=== PATIENT | male | born 1980 | race Caucasian/White ===

== ENCOUNTER 2019-09-03 17:02 | Emergency (ER) | payer OTHER ==
[~2019-09-03] VITALS: Ht 172.7 cm; Wt 83.9 kg
[2019-09-03] MEDS ORDERED: DORYX MPC120 MG PO (17:14)
[2019-09-03] MEDS ORDERED: PROAIR HFA8.5 GM INH (17:14)
[2019-09-03] MEDS ORDERED: BYSTOLIC10 MG PO (17:14)
[2019-09-03 17:42] LABS: ABSOLUTE BASOPHILS 0.1 thou/uL (0.0-0.2); ABSOLUTE EOSINOPHILS 0.1 thou/uL (0.0-0.7); ABSOLUTE LYMPHOCYTES 1.8 thou/uL (0.8-5.3); ABSOLUTE MONOCYTES 0.8 thou/uL (0.0-1.2); ABSOLUTE NEUTROPHILS 8.6 thou/uL (1.6-8.1); BASOPHILS 0.5 %; EOSINOPHILS 1.1 %; HEMATOCRIT 50.8 % (42.0-52.0); HEMOGLOBIN 17.8 gm/dL (14.0-18.0); LYMPHOCYTES 15.4 %; MCHC 35.1 g/dL (28.0-37.0); MCV 99.6 fL (80.0-100.0); MONOCYTES 7.4 %; MPV 7.6 fl. (7.2-11.1); NUCLEATED RBCS 0 /100WBC; PLATELET COUNT* 235 thou/uL (150-400); POLYS 75.6 %; RDW-CV 13.8 % (10.5-14.5); WBC 11.4 thou/uL (4.0-11.0)
[2019-09-03 17:51] LABS: CALCIUM 9.3 mg/dL (8.5-10.1); CREATININE 1.1 mg/dL (0.6-1.3); POTASSIUM 4.2 mmol/L (3.5-5.1)
[2019-09-03 17:55] LABS: TOTAL BILIRUBIN 0.6 mg/dL (<0.1-1.0); TOTAL PROTEIN 7.7 g/dL (6.4-8.2)
[2019-09-03] MEDS ORDERED: TESSALON PERLE100 M1 PO (18:20)
[2019-09-03 18:30] VITALS: BP 120/88
--- NOTE | 2019-09-04 09:28 | EKG ---
[place] [address] ELECTROCARDIOGRAM REPORT Name: DARIUSJON Room: [facility]#: [id number] Admission: 09/03/19 Attend Phys: Discharge: 09/03/19 Date of : 78 Date of Service: 09/03/191712 Report #: [id number] THIS REPORT FOR: //name// [facility] ED Test Date: 2019-09-03 Test Time: 17:13:51 Pat Name: JON MCCOY Department: Room: Gender: Fingerprint Classifier: : 1980 Requested By: Jorge Swartz Order Number: [id number] MD: Sam Tavarez Measurements Intervals [place] Rate: 73 P: 21 [place]: 135 QRS: 51 QRSD: 91 T: 40 QT: 365 QTc: 403 Interpretive Statements Sinus rhythm Compared to ECG 04/20/2007 21:42:21 No significant changes Electronically Signed On 09-04-2019 9:26:43 CDT by Sam Tavarez [email or web address] <ELECTRONICALLY SIGNED> By: Sam Tavarez MD, [facility] 09/04/19925 12 12 Sam Tavarez MD, [facility] /EPI
== END 2019-09-03 18:34 | disposition home or self-care (01) ==
LOC: M.ERS 17:02
PROVIDERS: Emergency Medicine Emergency Medical Services
DX: J40 Bronchitis, not specified as acute or chronic (principal); I10 Essential (primary) hypertension; F17.210 Nicotine dependence, cigarettes, uncomplicated; Z90.49 Acquired absence of other specified parts of digestive tract